=== PATIENT | male | born 1935 | race Caucasian/White ===

== ENCOUNTER 2017-03-28 21:14 | Inpatient (IN) | payer OTHER, BC ==
[~2017-03-28] VITALS: Ht 170.2 cm; Wt 60.0 kg
--- NOTE | ~2017-03-28 | HC ---
[facility] [place] [address] CONSULTATION Name: MIKAELACORTES Mosher Room #: 459-P [facility] IN M.R.#: [id number] Admission: 03/29/17 Attend Phys: Meng Ruano MD Discharge: 04/01/17 Date of : 35 Report #: [id number] THIS REPORT FOR: //name// CC: EMMANUEL Galdamez HISTORY OF PRESENT ILLNESS: The patient is an 81-year-old white male with a history of Parkinson's disease, atrial fibrillation, hypertension, hyperlipidemia who had inability to lift his arms secondary to complaints of weakness. He had an elevated blood pressure 190/90. He also had some diplopia, which has resolved. Continues to complain of increased upper extremity weakness and decreased function. CT of the head was negative. He is noted to have evidence of congestive heart failure. There is a question of a TIA. We are seeing in rehabilitation medicine consultation. PAST MEDICAL HISTORY: Includes mastoidectomy, hypertension, high cholesterol, abscess around the anal area, history of Parkinson's disease. HABITS: No history of tobacco or alcohol abuse. ALLERGIES: Please see the noted allergies. They include CIPROFLOXACIN and PENICILLIN. MEDICATIONS: Please see the full medication listing. SOCIAL HISTORY: Lives in an apartment alone, second floor. He has some friends that live in the same floor. He has 3 children that are out of town. Typically utilizes a 4-wheeled walker. REVIEW OF SYSTEMS: Has an old right shoulder rotator cuff tear and has decreased use of that right shoulder and proximal upper extremity. No current complaints of chest pain, shortness of breath or abdominal discomfort. Complains of overall generalized weakness, debilitation. He notes the diplopia is gone. No complaints of headache or bowel or bladder changes were voiced. PHYSICAL EXAMINATION: GENERAL: An 81-year-old white male in no obvious distress. VITAL SIGNS: Last recorded temperature 98.5, pulse 71, respirations 18, blood pressure 138/80. The patient is alert, pleasant. HEENT: Appeared to be benign. NEUROLOGIC: Cranial nerves are grossly intact. Facies are symmetric. There is some evidence of masked facies. EXTREMITIES: He has decreased shoulder abduction with some weakness from that rotator cuff tear per his history. Proximally he is grade 4- to 3+ as far as elbow or wrist movement, I would grade him at 3+ to 4-. Left upper extremity is 3+ to 4-. Bilateral lower extremity strength is 3+ to 4-. He does have [facility] [address] [place] [address] CONSULTATION Name: CORTES AL Room #: 459-P [facility] IN [facility]#: [id number] Admission: 03/29/17 Attend Phys: Meng Ruano MD Discharge: 04/01/17 Date of : 35 Report #: [id number] evidence for some cogwheeling at the elbows and wrists. Some rigidity is noted. He notes he has chronic arthritis of both ankles. Transfers have been mod assist. He was able to ambulate 3 feet mod assist. IMPRESSION: An 81-year-old white male with the following problem list: 1. Parkinson's disease. 2. Weakness of both upper extremities with diplopia and apparent TIA. 3. Atrial fibrillation. 4. Hypertension. 5. Hyperlipidemia. 6. High cholesterol. 7. Hypertension. PLAN: Therapy evaluations are underway. We will be glad to follow regarding rehab therapy issues. He is wanting to go directly back home into his apartment, but has limited assistance there. He thinks that one of his neighbors could stay with him. We will need to see how he does in his therapies and be glad to follow along with you. <ELECTRONICALLY SIGNED> By: Salas Brownlee MD 04/02/17 1826 1315 55 Salas Brownlee MD /nt
--- NOTE | ~2017-03-28 | EKG ---
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
[~2017-03-28 21:14] MED LIST: CITRACAL SOFT1 EACH PO; GLUCOSAMINE HC500 MG PO; LISINOPRIL-HCT1 EACH PO; MIRAPEX1 MG PO; OMEGA-31000 M2 PO; SINEMET 25-1001 EAC1 PO; VITAMIN B COMP1 EACH PO; ZOCOR20 MG PO
[2017-03-28 21:23] VITALS: BP 184/90
[2017-03-29 01:10] LABS: HEMATOCRIT 31.9 % (42.0-52.0); HEMOGLOBIN 10.1 gm/dL (14.0-18.0); MCH 25.6 pg (26.0-34.0); MCHC 31.6 g/dL (28.0-37.0); PLATELET COUNT 223 thou/uL (150-400); RBC 3.94 mil/uL (4.50-6.00); RDW 18.5 % (10.5-14.5); WBC 8.3 thou/uL (4.0-11.0)
[2017-03-29 01:17] LABS: MANUAL DIFF YES
[2017-03-29 01:34] LABS: ANION GAP 9 mmol/L (7-16); BUN 24 mg/dL (7-18); CALCIUM 9.2 mg/dL (8.5-10.1); CHLORIDE 108 mmol/L (98-107); CO2 27 mmol/L (21-32); CREATININE 1.3 mg/dL (0.7-1.3); GLUCOSE 96 mg/dL (74-106); POTASSIUM 3.9 mmol/L (3.5-5.1); SODIUM 144 mmol/L (136-145)
[2017-03-29 01:40] LABS: APTT 22.9 Seconds (24.5-32.8); INR 1.1; PROTIME 10.9 Seconds (9.3-11.4)
[2017-03-29 01:45] LABS: ABSOLUTE NEUTROPHILS 5.7 thou/uL (1.4-8.2); ANISOCYTOSIS 1+; LARGE PLATELETS RARE; TOTAL CELL COUNT 100
[2017-03-29 01:46] LABS: MAGNESIUM 1.7 mg/dL (1.8-2.4); NT-PRO BRAIN NAT PEPTIDE 1903 pg/mL (<300); TROPONIN-I < 0.04 ng/mL (<0.04-0.07)
[2017-03-29 04:07] VITALS: BP 157/85
[2017-03-29 04:35] VITALS: BP 185/74
[2017-03-29] MEDS ORDERED: PLAVIX 75 MG TA75 M1 PO (05:34)
[2017-03-29 07:50] VITALS: BP 146/76
[2017-03-29 12:21] VITALS: BP 138/80
[2017-03-29 16:37] VITALS: BP 169/97
[2017-03-29 20:01] VITALS: BP 145/78
[2017-03-30 04:15] VITALS: BP 150/78
[2017-03-30 04:49] LABS: HEMATOCRIT 32.2 % (42.0-52.0); HEMOGLOBIN 10.4 gm/dL (14.0-18.0); MCH 25.8 pg (26.0-34.0); MCHC 32.3 g/dL (28.0-37.0); MCV 79.8 fL (80.0-100.0); RBC 4.04 mil/uL (4.50-6.00); WBC 8.6 thou/uL (4.0-11.0)
[2017-03-30 05:06] LABS: CALCIUM 9.4 mg/dL (8.5-10.1); CREATININE 1.2 mg/dL (0.7-1.3); POTASSIUM 4.2 mmol/L (3.5-5.1)
[2017-03-30 07:55] VITALS: BP 128/68
[2017-03-30 11:15] VITALS: BP 157/84
[2017-03-30 11:55] LABS: CHOLESTEROL 117 mg/dL (<200); HDL CHOLESTEROL 70 mg/dL (>40); LDL CHOLESTEROL 43 mg/dL (<100); TC:HDL 1.7 Ratio (Not establshd); TRIGLYCERIDE 24 mg/dL (<150); VLDL 5 mg/dL (<40)
[2017-03-30 15:18] VITALS: BP 117/61
[2017-03-30 19:51] VITALS: BP 126/75
[2017-03-31 03:33] VITALS: BP 158/86
[2017-03-31 04:03] VITALS: BP 158/86
[2017-03-31 08:06] VITALS: BP 92/56
[2017-03-31 12:05] VITALS: BP 111/67
[2017-03-31 16:18] VITALS: BP 133/68
[2017-03-31 19:25] VITALS: BP 126/64
[2017-04-01 03:04] VITALS: BP 132/78
[2017-04-01 07:50] VITALS: BP 103/68
[2017-04-01 11:27] VITALS: BP 112/69
[2017-04-01 11:51] VITALS: BP 112/69
== END 2017-04-01 13:30 | disposition home health service (06) | DRG 293 ==
LOC: ER 21:14 → EROBS 03-29 02:31 → 4W 03-29 02:31
PROVIDERS: Emergency Medicine; Nurse Practitioner Family; Psychiatry & Neurology Neurology
DX: I11.0 Hypertensive heart disease with heart failure (principal); E78.00 Pure hypercholesterolemia, unspecified; G20 Parkinson's disease; K59.00 Constipation, unspecified; I50.9 Heart failure, unspecified; I48.91 Unspecified atrial fibrillation; H53.2 Diplopia; E78.5 Hyperlipidemia, unspecified; Z60.2 Problems related to living alone; Z79.899 Other long term (current) drug therapy; Z88.1 Allergy status to other antibiotic agents; Z88.0 Allergy status to penicillin
CPT/HCPCS: 10045